=== PATIENT | female | born 1960 | race Caucasian/White ===

== ENCOUNTER 2018-01-20 07:04 | Inpatient (IN) | payer OTHER ==
[2018-01-20] MEDS ORDERED: GELATIN SIZE 100 SPONGE (08:14)
[2018-01-20] MEDS ORDERED: THROMBIN 5000 UNIT VIAL (08:15)
[2018-01-20] MEDS ORDERED: METOCLOPRAMIDE 10 MG INJ (09:14)
[2018-01-20] MEDS ORDERED: ROCURONIUM 50 MG INJ ×2 (09:14→11:22)
[2018-01-20] MEDS ORDERED: FENTAnyl 50 MCG/ML VIAL ×2 (09:14→09:44)
[2018-01-20] MEDS ORDERED: PROPOFOL 20 ML ×3 (09:14→12:12)
[2018-01-20] MEDS ORDERED: MIDAZOLAM 1 MG/ML 2 ML INJ (09:14)
[2018-01-20] MEDS ORDERED: AL HYDROX/MG HYDROX/SIMETH 30 ML CUP PO (09:30)
[2018-01-20] MEDS ORDERED: NALOXONE (0.4 MG/ML) INJ IV (09:30)
[2018-01-20] MEDS ORDERED: NACL 0.9% 3 ML SYG IV (09:30)
[2018-01-20] MEDS ORDERED: ACETAMINOPHEN 325 MG TAB PO (09:30)
[2018-01-20] MEDS ORDERED: HYDROmorphONE 2 MG/ML SYG (09:37)
[2018-01-20] MEDS ORDERED: CEFAZOLIN 1 GM INJ (10:06)
[2018-01-20] MEDS ORDERED: DEXAMETHASONE 4 MG/ML 1 ML INJ (10:06)
[2018-01-20] MEDS ORDERED: EPHEDrine SULFATE 50 MG/5 ML SYG (10:19)
[2018-01-20] MEDS ORDERED: SUCCINYLCHOLINE CHLORIDE 100 MG/5 ML SYG IV (10:19)
[2018-01-20] MEDS ORDERED: METOPROLOL 5 MG INJ (10:24)
[2018-01-20] MEDS ORDERED: DIPHENHYDRAMINE 50 MG INJ IV ×2 (10:30)
[2018-01-20] MEDS ORDERED: HYDROmorphONE (0.2 MG/ML) 10ML SYG IV ×2 (10:30)
[2018-01-20] MEDS ORDERED: hydrALAzine 20 MG INJ IV ×2 (10:30)
[2018-01-20] MEDS ORDERED: MEPERIDINE 25 MG INJ IV ×2 (10:30)
[2018-01-20] MEDS ORDERED: LABETALOL HCL 20MG INJ IV ×2 (10:30)
[2018-01-20] MEDS ORDERED: HYDROmorphONE 0.5 MG/0.5 ML SYG IV ×3 (10:30)
[2018-01-20] MEDS ORDERED: ONDANSETRON 4 MG INJ IV ×2 (10:30)
[2018-01-20] MEDS: POLYMYXIN/BACITRACIN 1L IRRIG (10:39)
[2018-01-20] MEDS ORDERED: hydrALAzine 20 MG INJ (10:50)
[2018-01-20] MEDS ORDERED: MEPERIDINE 100 MG INJ (11:43)
[2018-01-20] MEDS: ROPIVACAINE 0.5 % 30 ML VIAL ×2 (12:04→12:05)
[2018-01-20] MEDS ORDERED: NEOSTIGMINE 3 MG/3 ML SYRINGE (12:16)
[2018-01-20] MEDS ORDERED: GLYCOPYRROLATE 0.4 MG INJ (12:17)
[2018-01-20] MEDS ORDERED: LABETALOL HCL 20MG INJ (12:35)
[2018-01-20] MEDS: HYDROmorphONE (0.2 MG/ML) 10ML SYG IV (13:22)
[2018-01-20] MEDS: CEFAZOLIN 1 GM/50 ML (PMX) 50 ML IVPB ×3 (13:26→23:55)
[2018-01-20] MEDS: HYDROmorphONE 0.2 MG/ML PCA IV (13:51)
[2018-01-20] MEDS: HYDROCODONE/APAP (5/325) TAB PO (18:10)
[2018-01-20] MEDS: NS + KCL 20 MEQ 1,000 ML IV ×2 (20:11→22:27)
[2018-01-20] MEDS: HYDROmorphONE 0.5 MG/0.5 ML SYG IV (20:18)
[2018-01-20] MEDS: DOCUSATE SODIUM 100 MG CAP PO ×2 (21:42→21:46)
[2018-01-20] MEDS: KETOROLAC 30 MG INJ IM (22:37)
[2018-01-21] MEDS: HYDROmorphONE 0.5 MG/0.5 ML SYG IV ×3 (00:03→06:00)
[2018-01-21] MEDS: METHOCARBAMOL 750 MG TAB PO ×3 (02:22→22:09)
[2018-01-21] MEDS: HYDROmorphONE 0.2 MG/ML PCA IV ×2 (03:24→14:39)
[2018-01-21 04:53] LABS: ADD MAN DIFF? NO
[2018-01-21 04:55] LABS: BASOPHILS % 0.1 % (0.0-2.0); HEMATOCRIT 27.6 % (37.0-47.0); HEMOGLOBIN 9.3 g/dl (12.0-16.0); LYMPHOCYTES # 2.3 10^3/ul (0.8-2.9); LYMPHOCYTES % 20.9 % (15.0-51.0); MEAN CORPUSCULAR HEMOGLOBIN 31.1 pg (29.0-33.0); MEAN CORPUSCULAR HGB CONC 33.7 g/dl (32.0-37.0); MEAN CORPUSCULAR VOLUME 92.3 fl (82.0-101.0); MEAN PLATELET VOLUME 9.3 fl (7.4-10.4); MONOCYTE # 0.8 10^3/ul (0.3-0.9); NEUTROPHILS % 71.7 % (39.0-77.0); PLATELET COUNT 284 10^3/UL (140-415); RED BLOOD COUNT 2.99 10^6/ul (4.20-5.40); RED CELL DISTRIBUTION WIDTH 14.8 % (11.5-14.5)
[2018-01-21 04:55] LABS: WHITE BLOOD COUNT 11.2 10^3/ul (4.8-10.8)
[2018-01-21 05:09] LABS: ANION GAP 8 (8-16); BLOOD UREA NITROGEN 11 mg/dl (7-20); CALCIUM 8.2 mg/dl (8.4-10.2); CARBON DIOXIDE 30 mmol/L (21-31); CHLORIDE 110 mmol/L (97-110); CREATININE 0.54 mg/dl (0.44-1.00); GLUCOSE 104 mg/dl (70-220); POTASSIUM 3.6 mmol/L (3.5-5.1); SODIUM 144 mmol/L (135-144)
[2018-01-21] MEDS: NS + KCL 20 MEQ 1,000 ML IV ×2 (05:22→16:48)
[2018-01-21] MEDS: CEFAZOLIN 1 GM/50 ML (PMX) 50 ML IVPB (05:23)
[2018-01-21] MEDS: BUPROPION 75 MG TAB PO (08:14)
[2018-01-21] MEDS: DOCUSATE SODIUM 100 MG CAP PO ×2 (08:14→20:50)
[2018-01-21] MEDS: NICOTINE (7 MG/24 HR) PATCH TRANSDERM (08:14)
[2018-01-21] MEDS: KETOROLAC 30 MG INJ IM (08:16)
[2018-01-21] MEDS: DIPHENHYDRAMINE 50 MG INJ IV ×2 (08:34→15:18)
[2018-01-21] MEDS: KETOROLAC 30 MG INJ IV ×3 (08:37→20:50)
[2018-01-21] MEDS: HYDROCODONE/APAP (5/325) TAB PO ×3 (11:45→22:09)
[2018-01-22] MEDS: NS + KCL 20 MEQ 1,000 ML IV ×2 (03:08→13:05)
[2018-01-22] MEDS: KETOROLAC 30 MG INJ IV ×2 (03:09→15:55)
[2018-01-22] MEDS: HYDROmorphONE 0.2 MG/ML PCA IV (03:11)
[2018-01-22 06:05] LABS: ALANINE AMINOTRANSFERASE 36 IU/L (13-69); ALBUMIN/GLOBULIN RATIO 1.11; ALKALINE PHOSPHATASE 49 IU/L (42-121); ANION GAP 8 (8-16); ASPARTATE AMINO TRANSFERASE 49 IU/L (15-46); BILIRUBIN,INDIRECT 0.1 mg/dl (0-1.1); BILIRUBIN,TOTAL 0.1 mg/dl (0.2-1.3); BLOOD UREA NITROGEN 4 mg/dl (7-20); CALCIUM 8.2 mg/dl (8.4-10.2); CARBON DIOXIDE 32 mmol/L (21-31); CHLORIDE 107 mmol/L (97-110); CREATININE 0.46 mg/dl (0.44-1.00); GLUCOSE 85 mg/dl (70-220); POTASSIUM 3.5 mmol/L (3.5-5.1); SODIUM 143 mmol/L (135-144); TOTAL PROTEIN 5.7 g/dl (6.1-8.1)
[2018-01-22] MEDS: HYDROCODONE/APAP (5/325) TAB PO ×3 (06:56→20:21)
[2018-01-22] MEDS: DOCUSATE SODIUM 100 MG CAP PO ×2 (08:31→20:21)
[2018-01-22] MEDS: BUPROPION 75 MG TAB PO (08:32)
[2018-01-22] MEDS: NICOTINE (7 MG/24 HR) PATCH TRANSDERM (09:32)
[2018-01-22] MEDS: METHOCARBAMOL 750 MG TAB PO (10:22)
[2018-01-22] MEDS: HYDROmorphONE 0.5 MG/0.5 ML SYG IV ×3 (13:05→21:17)
[2018-01-23] MEDS: NS + KCL 20 MEQ 1,000 ML IV ×3 (00:09→21:06)
[2018-01-23] MEDS: KETOROLAC 30 MG INJ IV ×3 (02:00→19:49)
[2018-01-23] MEDS: HYDROmorphONE 0.5 MG/0.5 ML SYG IV ×4 (06:05→23:07)
[2018-01-23] MEDS: HYDROCODONE/APAP (5/325) TAB PO ×3 (08:54→18:49)
[2018-01-23] MEDS: BUPROPION 75 MG TAB PO (08:55)
[2018-01-23] MEDS: DOCUSATE SODIUM 100 MG CAP PO ×2 (08:55→21:01)
[2018-01-23] MEDS: NICOTINE (7 MG/24 HR) PATCH TRANSDERM (08:55)
[2018-01-24] MEDS: HYDROCODONE/APAP (5/325) TAB PO ×4 (04:51→19:58)
[2018-01-24] MEDS: KETOROLAC 30 MG INJ IV (05:33)
[2018-01-24 05:47] LABS: ADD MAN DIFF? NO
[2018-01-24 05:57] LABS: BASOPHILS % 0.6 % (0.0-2.0); EOSINOPHILS # 0.2 10^3/ul (0.0-0.5); EOSINOPHILS % 2.8 % (0.0-7.0); HEMATOCRIT 27.6 % (37.0-47.0); HEMOGLOBIN 9.1 g/dl (12.0-16.0); LYMPHOCYTES # 1.8 10^3/ul (0.8-2.9); LYMPHOCYTES % 27.1 % (15.0-51.0); MEAN CORPUSCULAR HEMOGLOBIN 30.5 pg (29.0-33.0); MEAN CORPUSCULAR VOLUME 92.6 fl (82.0-101.0); MEAN PLATELET VOLUME 9.1 fl (7.4-10.4); MONOCYTE # 0.5 10^3/ul (0.3-0.9); MONOCYTES % 7.1 % (0.0-11.0); NEUTROPHILS % 62.2 % (39.0-77.0); PLATELET COUNT 305 10^3/UL (140-415); RED BLOOD COUNT 2.98 10^6/ul (4.20-5.40); RED CELL DISTRIBUTION WIDTH 14.7 % (11.5-14.5)
[2018-01-24 05:57] LABS: WHITE BLOOD COUNT 6.5 10^3/ul (4.8-10.8)
[2018-01-24 06:20] LABS: ANION GAP 11 (8-16); BLOOD UREA NITROGEN 6 mg/dl (7-20); CALCIUM 8.4 mg/dl (8.4-10.2); CARBON DIOXIDE 28 mmol/L (21-31); CHLORIDE 107 mmol/L (97-110); CREATININE 0.47 mg/dl (0.44-1.00); GLUCOSE 102 mg/dl (70-220); SODIUM 142 mmol/L (135-144)
[2018-01-24] MEDS: NS + KCL 20 MEQ 1,000 ML IV (06:39)
[2018-01-24] MEDS: BUPROPION 75 MG TAB PO (08:15)
[2018-01-24] MEDS: DOCUSATE SODIUM 100 MG CAP PO ×2 (08:15→19:57)
[2018-01-24] MEDS: NICOTINE (7 MG/24 HR) PATCH TRANSDERM (08:15)
[2018-01-24] MEDS: HYDROmorphONE 0.5 MG/0.5 ML SYG IV ×4 (09:02→20:54)
[2018-01-25] MEDS: HYDROmorphONE 0.5 MG/0.5 ML SYG IV ×6 (00:07→22:16)
[2018-01-25] MEDS: HYDROCODONE/APAP (5/325) TAB PO ×5 (00:29→21:07)
[2018-01-25 05:16] LABS: ADD MAN DIFF? NO
[2018-01-25 05:25] LABS: WHITE BLOOD COUNT 6.1 10^3/ul (4.8-10.8)
[2018-01-25 05:25] LABS: BASOPHILS % 0.7 % (0.0-2.0); EOSINOPHILS # 0.2 10^3/ul (0.0-0.5); EOSINOPHILS % 2.9 % (0.0-7.0); HEMATOCRIT 29.3 % (37.0-47.0); HEMOGLOBIN 9.8 g/dl (12.0-16.0); LYMPHOCYTES # 2.1 10^3/ul (0.8-2.9); LYMPHOCYTES % 33.7 % (15.0-51.0); MEAN CORPUSCULAR HEMOGLOBIN 30.6 pg (29.0-33.0); MEAN CORPUSCULAR HGB CONC 33.4 g/dl (32.0-37.0); MEAN CORPUSCULAR VOLUME 91.6 fl (82.0-101.0); MEAN PLATELET VOLUME 8.8 fl (7.4-10.4); MONOCYTE # 0.5 10^3/ul (0.3-0.9); MONOCYTES % 8.3 % (0.0-11.0); NEUTROPHIL # 3.3 10^3/ul (1.6-7.5); NEUTROPHILS % 54.2 % (39.0-77.0); PLATELET COUNT 335 10^3/UL (140-415); RED CELL DISTRIBUTION WIDTH 14.4 % (11.5-14.5)
[2018-01-25 05:52] LABS: ANION GAP 6 (8-16); BLOOD UREA NITROGEN 6 mg/dl (7-20); CARBON DIOXIDE 35 mmol/L (21-31); CHLORIDE 108 mmol/L (97-110); CREATININE 0.53 mg/dl (0.44-1.00); GLUCOSE 105 mg/dl (70-220); POTASSIUM 3.9 mmol/L (3.5-5.1); SODIUM 145 mmol/L (135-144)
[2018-01-25] MEDS: METHOCARBAMOL 750 MG TAB PO (06:10)
[2018-01-25] MEDS: DOCUSATE SODIUM 100 MG CAP PO ×2 (08:31→20:24)
[2018-01-25] MEDS: BUPROPION 75 MG TAB PO (08:32)
[2018-01-25] MEDS: NICOTINE (7 MG/24 HR) PATCH TRANSDERM (08:33)
[2018-01-26] MEDS: HYDROmorphONE 0.5 MG/0.5 ML SYG IV ×6 (03:38→22:07)
[2018-01-26 05:37] LABS: ADD MAN DIFF? NO
[2018-01-26 05:41] LABS: WHITE BLOOD COUNT 5.9 10^3/ul (4.8-10.8)
[2018-01-26 05:41] LABS: BASOPHIL # 0.1 10^3/ul (0.0-0.1); EOSINOPHILS # 0.2 10^3/ul (0.0-0.5); EOSINOPHILS % 3.1 % (0.0-7.0); HEMATOCRIT 29.1 % (37.0-47.0); HEMOGLOBIN 9.7 g/dl (12.0-16.0); LYMPHOCYTES # 1.5 10^3/ul (0.8-2.9); LYMPHOCYTES % 25.2 % (15.0-51.0); MEAN CORPUSCULAR HEMOGLOBIN 30.8 pg (29.0-33.0); MEAN CORPUSCULAR HGB CONC 33.3 g/dl (32.0-37.0); MEAN CORPUSCULAR VOLUME 92.4 fl (82.0-101.0); MEAN PLATELET VOLUME 8.7 fl (7.4-10.4); MONOCYTE # 0.5 10^3/ul (0.3-0.9); MONOCYTES % 8.7 % (0.0-11.0); NEUTROPHIL # 3.6 10^3/ul (1.6-7.5); NEUTROPHILS % 61.7 % (39.0-77.0); PLATELET COUNT 361 10^3/UL (140-415); RED BLOOD COUNT 3.15 10^6/ul (4.20-5.40); RED CELL DISTRIBUTION WIDTH 14.7 % (11.5-14.5)
[2018-01-26 05:59] LABS: ANION GAP 12 (8-16); BLOOD UREA NITROGEN 9 mg/dl (7-20); CALCIUM 8.9 mg/dl (8.4-10.2); CARBON DIOXIDE 30 mmol/L (21-31); CHLORIDE 104 mmol/L (97-110); CREATININE 0.51 mg/dl (0.44-1.00); GLUCOSE 120 mg/dl (70-220); POTASSIUM 4.2 mmol/L (3.5-5.1); SODIUM 142 mmol/L (135-144)
[2018-01-26] MEDS: HYDROCODONE/APAP (5/325) TAB PO ×4 (07:51→21:34)
[2018-01-26] MEDS: DOCUSATE SODIUM 100 MG CAP PO ×2 (08:49→21:26)
[2018-01-26] MEDS: METHOCARBAMOL 750 MG TAB PO ×2 (08:50→17:58)
[2018-01-26] MEDS: BUPROPION 75 MG TAB PO (08:50)
[2018-01-26] MEDS: NICOTINE (7 MG/24 HR) PATCH TRANSDERM (08:51)
[2018-01-27] MEDS: HYDROCODONE/APAP (5/325) TAB PO ×4 (01:50→17:46)
[2018-01-27] MEDS: HYDROmorphONE 0.5 MG/0.5 ML SYG IV ×7 (02:13→18:22)
[2018-01-27] MEDS: DOCUSATE SODIUM 100 MG CAP PO (08:36)
[2018-01-27] MEDS: BUPROPION 75 MG TAB PO (08:36)
[2018-01-27] MEDS: NICOTINE (7 MG/24 HR) PATCH TRANSDERM (08:36)
[2018-01-27] MEDS: METHOCARBAMOL 750 MG TAB PO (11:15)
== END 2018-01-27 19:45 | disposition home or self-care (01) | DRG 472 ==
LOC: REC 07:04 → MS1 01-22 01:45 → ICU 20:04 → MS1 01-22 03:15
PROC: 0RG20AJ Fusion of 2 or more Cervical Vertebral Joints with Interbody Fusion Device, Posterior Approach, Anterior Column, Open Approach (ICD-10-PCS; principal; 2018-01-20 09:00)
DX: M48.02 Spinal stenosis, cervical region (principal); Z68.1 Body mass index [BMI] 19.9 or less, adult; E44.0 Moderate protein-calorie malnutrition; G95.89 Other specified diseases of spinal cord; M54.12 Radiculopathy, cervical region; F41.8 Other specified anxiety disorders; Z72.0 Tobacco use; Z98.1 Arthrodesis status
CPT/HCPCS: 71045; 72020; 72125; 80048; 80053; 85025; 86850; 86900; 86901; 87086; 97110; 97116; 97163; 97530

== ENCOUNTER 2018-02-12 16:28 | Emergency (ER) | payer OTHER ==
[2018-02-12] MEDS: ONDANSETRON 4 MG INJ IV (17:37)
[2018-02-12] MEDS: HYDROmorphONE 1 MG/5 ML IV SYRINGE IV (17:39)
[2018-02-12] MEDS: SOD CHLORIDE 0.9% 1,000 ML IV (17:39)
[2018-02-12 18:32] LABS: ADD MAN DIFF? NO
[2018-02-12 18:34] LABS: BASOPHIL # 0.1 10^3/ul (0.0-0.1); BASOPHILS % 1.1 % (0.0-2.0); EOSINOPHILS # 0.2 10^3/ul (0.0-0.5); EOSINOPHILS % 3.3 % (0.0-7.0); HEMATOCRIT 31.7 % (37.0-47.0); HEMOGLOBIN 10.2 g/dl (12.0-16.0); LYMPHOCYTES # 2.6 10^3/ul (0.8-2.9); LYMPHOCYTES % 38.6 % (15.0-51.0); MEAN CORPUSCULAR HEMOGLOBIN 30.1 pg (29.0-33.0); MEAN CORPUSCULAR HGB CONC 32.2 g/dl (32.0-37.0); MEAN CORPUSCULAR VOLUME 93.5 fl (82.0-101.0); MEAN PLATELET VOLUME 8.4 fl (7.4-10.4); MONOCYTE # 0.5 10^3/ul (0.3-0.9); MONOCYTES % 7.4 % (0.0-11.0); NEUTROPHIL # 3.3 10^3/ul (1.6-7.5); NEUTROPHILS % 49.4 % (39.0-77.0); PLATELET COUNT 564 10^3/UL (140-415); RED BLOOD COUNT 3.39 10^6/ul (4.20-5.40)
[2018-02-12 18:34] LABS: WHITE BLOOD COUNT 6.7 10^3/ul (4.8-10.8)
[2018-02-12 18:53] LABS: ALANINE AMINOTRANSFERASE 20 IU/L (13-69); ALBUMIN 4.4 g/dl (3.3-4.9); ALBUMIN/GLOBULIN RATIO 1.29; ALKALINE PHOSPHATASE 62 IU/L (42-121); ANION GAP 15 (8-16); ASPARTATE AMINO TRANSFERASE 24 IU/L (15-46); BILIRUBIN,INDIRECT 0.1 mg/dl (0-1.1); BILIRUBIN,TOTAL 0.1 mg/dl (0.2-1.3); BLOOD UREA NITROGEN 8 mg/dl (7-20); CARBON DIOXIDE 27 mmol/L (21-31); CHLORIDE 105 mmol/L (97-110); CREATININE 0.58 mg/dl (0.44-1.00); GLUCOSE 102 mg/dl (70-220); LIPASE 80 U/L (23-300); POTASSIUM 3.8 mmol/L (3.5-5.1); SODIUM 143 mmol/L (135-144); TOTAL PROTEIN 7.8 g/dl (6.1-8.1)
[2018-02-12 19:23] LABS: ADD UMIC YES; UR ASCORBIC ACID NEGATIVE (NEGATIVE); UR BILIRUBIN (Dip) NEGATIVE (NEGATIVE); UR BLOOD (Dip) 1+ mg/dL (NEGATIVE); UR CLARITY SLIGHTLY CLOUDY (CLEAR); UR COLOR YELLOW (YELLOW); UR GLUCOSE (Dip) NEGATIVE (NEGATIVE); UR KETONES (Dip) NEGATIVE (NEGATIVE); UR LEUKOCYTE ESTERASE (Dip) TRACE Leu/ul (NEGATIVE); UR NITRITE (Dip) NEGATIVE (NEGATIVE); UR RBC 1 /HPF (0-5); UR SPECIFIC GRAVITY (Dip) 1.004 (1.003-1.030); UR TOTAL PROTEIN (Dip) NEGATIVE (NEGATIVE); UR UROBILINOGEN (Dip) NEGATIVE (NEGATIVE); UR WBC 3 /HPF (0-5)
== END 2018-02-12 19:44 | disposition home or self-care (01) ==
LOC: FTE 16:28
DX: G89.18 Other acute postprocedural pain (principal); M54.2 Cervicalgia
CPT/HCPCS: 36415; 72125; 80053; 81001; 83690; 85025; 96374; 96375; 99285-25

== ENCOUNTER 2018-02-25 00:51 | Inpatient (IN) | payer OTHER ==
[2018-02-25] MEDS: ONDANSETRON 4 MG INJ IV (02:46)
[2018-02-25] MEDS: morphine 4 MG/ML VIAL IV (02:47)
[2018-02-25] MEDS: SODIUM CHLORIDE 0.9% 1L BAG IV* (02:47)
[2018-02-25 02:52] LABS: ADD MAN DIFF? NO
[2018-02-25 02:55] LABS: BASOPHIL # 0.1 10^3/ul (0.0-0.1); EOSINOPHILS # 0.1 10^3/ul (0.0-0.5); EOSINOPHILS % 1.6 % (0.0-7.0); HEMATOCRIT 32.6 % (37.0-47.0); HEMOGLOBIN 10.4 g/dl (12.0-16.0); LYMPHOCYTES # 2.8 10^3/ul (0.8-2.9); LYMPHOCYTES % 39.4 % (15.0-51.0); MEAN CORPUSCULAR HEMOGLOBIN 29.5 pg (29.0-33.0); MEAN CORPUSCULAR HGB CONC 31.9 g/dl (32.0-37.0); MEAN CORPUSCULAR VOLUME 92.4 fl (82.0-101.0); MONOCYTE # 0.5 10^3/ul (0.3-0.9); MONOCYTES % 6.6 % (0.0-11.0); NEUTROPHIL # 3.6 10^3/ul (1.6-7.5); NEUTROPHILS % 51.3 % (39.0-77.0); PLATELET COUNT 317 10^3/UL (140-415); RED BLOOD COUNT 3.53 10^6/ul (4.20-5.40); RED CELL DISTRIBUTION WIDTH 14.1 % (11.5-14.5)
[2018-02-25 03:15] LABS: LACTIC ACID 0.8 mmol/L (0.5-2.0)
[2018-02-25 03:16] LABS: ALANINE AMINOTRANSFERASE 16 IU/L (13-69); ALBUMIN 4.6 g/dl (3.3-4.9); ALBUMIN/GLOBULIN RATIO 1.31; ALKALINE PHOSPHATASE 70 IU/L (42-121); ANION GAP 14 (8-16); ASPARTATE AMINO TRANSFERASE 26 IU/L (15-46); BILIRUBIN,INDIRECT 0.2 mg/dl (0-1.1); BILIRUBIN,TOTAL 0.2 mg/dl (0.2-1.3); BLOOD UREA NITROGEN 12 mg/dl (7-20); CALCIUM 9.2 mg/dl (8.4-10.2); CARBON DIOXIDE 27 mmol/L (21-31); CHLORIDE 105 mmol/L (97-110); CREATININE 0.66 mg/dl (0.44-1.00); GLUCOSE 106 mg/dl (70-220); POTASSIUM 4.3 mmol/L (3.5-5.1); SODIUM 142 mmol/L (135-144); TOTAL PROTEIN 8.1 g/dl (6.1-8.1)
[2018-02-25 03:28] LABS: ADD UMIC YES; UR ASCORBIC ACID NEGATIVE (NEGATIVE); UR BILIRUBIN (Dip) NEGATIVE (NEGATIVE); UR BLOOD (Dip) 1+ mg/dL (NEGATIVE); UR CLARITY CLEAR (CLEAR); UR COLOR YELLOW (YELLOW); UR GLUCOSE (Dip) NEGATIVE (NEGATIVE); UR KETONES (Dip) NEGATIVE (NEGATIVE); UR LEUKOCYTE ESTERASE (Dip) NEGATIVE Leu/ul (NEGATIVE); UR NITRITE (Dip) NEGATIVE (NEGATIVE); UR RBC 2 /HPF (0-5); UR SPECIFIC GRAVITY (Dip) 1.005 (1.003-1.030); UR TOTAL PROTEIN (Dip) NEGATIVE (NEGATIVE); UR UROBILINOGEN (Dip) NEGATIVE (NEGATIVE); UR WBC 1 /HPF (0-5)
[2018-02-25] MEDS: VANCOMYCIN 1 GM (PMX) 250 ML IVPB (04:06)
[2018-02-25] MEDS: CEFEPIME 2GM/50 ML (PMX) 50 ML IVPB (04:13)
[2018-02-25] MEDS: KETOROLAC 30 MG INJ IV (06:04)
[2018-02-25 06:23] LABS: LACTIC ACID 0.7 mmol/L (0.5-2.0)
[2018-02-25 08:00] LABS: LACTIC ACID 0.7 mmol/L (0.5-2.0)
[2018-02-25] MEDS ORDERED: PENDING SANTYL ORDER FOR WOUND CARE XX (08:30)
[2018-02-25] MEDS: morphine 2 MG INJ IV ×2 (09:46→13:49)
[2018-02-25] MEDS: OXYCODONE/ACETAMINOPHEN (10/325) TAB PO ×2 (09:47→20:16)
[2018-02-25] MEDS: LORATADINE 10 MG TAB PO (09:47)
[2018-02-25] MEDS: CHOLECALCIFEROL 2,000 UNIT CAP PO (09:47)
[2018-02-25] MEDS: BUPROPION 75 MG TAB PO (09:47)
[2018-02-25] MEDS ORDERED: VANCOMYCIN IV PER PHARMACY XX (12:30)
[2018-02-25] MEDS: METHOCARBAMOL 750 MG TAB PO (12:53)
[2018-02-25] MEDS: CEFEPIME 1GM/50 ML (PMX) 50 ML IVPB ×2 (13:45→20:16)
[2018-02-25] MEDS: NICOTINE (21 MG/24 HR) PATCH TRANSDERM (13:47)
[2018-02-25] MEDS: VANCOMYCIN 500MG/NS (PMX) 100 ML IVPB (16:28)
[2018-02-25] MEDS: morphine LIQ (10 MG/5 ML) CUP PO ×2 (17:49→23:09)
[2018-02-25] MEDS: traZODone 100 MG TAB PO (20:15)
[2018-02-26] MEDS: VANCOMYCIN 500MG/NS (PMX) 100 ML IVPB ×2 (03:47→15:28)
[2018-02-26] MEDS: METHOCARBAMOL 750 MG TAB PO ×3 (04:55→21:09)
[2018-02-26] MEDS: morphine LIQ (10 MG/5 ML) CUP PO (04:55)
[2018-02-26 06:13] LABS: ADD MAN DIFF? NO
[2018-02-26 06:23] LABS: WHITE BLOOD COUNT 4.6 10^3/ul (4.8-10.8)
[2018-02-26 06:23] LABS: BASOPHILS % 0.9 % (0.0-2.0); EOSINOPHILS # 0.1 10^3/ul (0.0-0.5); EOSINOPHILS % 2.6 % (0.0-7.0); HEMATOCRIT 30.7 % (37.0-47.0); HEMOGLOBIN 9.9 g/dl (12.0-16.0); LYMPHOCYTES # 2.1 10^3/ul (0.8-2.9); LYMPHOCYTES % 45.3 % (15.0-51.0); MEAN CORPUSCULAR HGB CONC 32.2 g/dl (32.0-37.0); MEAN PLATELET VOLUME 9.1 fl (7.4-10.4); MONOCYTE # 0.3 10^3/ul (0.3-0.9); MONOCYTES % 7.4 % (0.0-11.0); NEUTROPHILS % 43.6 % (39.0-77.0); PLATELET COUNT 271 10^3/UL (140-415); RED CELL DISTRIBUTION WIDTH 13.5 % (11.5-14.5)
[2018-02-26 07:58] LABS: ANION GAP 8 (8-16); BLOOD UREA NITROGEN 7 mg/dl (7-20); CALCIUM 8.5 mg/dl (8.4-10.2); CARBON DIOXIDE 26 mmol/L (21-31); CHLORIDE 111 mmol/L (97-110); CREATININE 0.61 mg/dl (0.44-1.00); GLUCOSE 80 mg/dl (70-220); POTASSIUM 4.1 mmol/L (3.5-5.1); SODIUM 141 mmol/L (135-144)
[2018-02-26] MEDS: HYDROmorphONE 1 MG/ML SYG IV ×4 (08:08→21:04)
[2018-02-26] MEDS ORDERED: NICOTINE (21 MG/24 HR) PATCH TRANSDERM (09:00)
[2018-02-26] MEDS: CHOLECALCIFEROL 2,000 UNIT CAP PO (09:27)
[2018-02-26] MEDS: OXYCODONE/ACETAMINOPHEN (10/325) TAB PO ×2 (09:28→21:54)
[2018-02-26] MEDS: LORATADINE 10 MG TAB PO (09:28)
[2018-02-26] MEDS: BUPROPION 75 MG TAB PO (09:28)
[2018-02-26] MEDS: CEFEPIME 1GM/50 ML (PMX) 50 ML IVPB ×2 (09:28→21:04)
[2018-02-26] MEDS: NICOTINE (21 MG/24 HR) PATCH TRANSDERM (09:31)
[2018-02-26 15:22] LABS: VANCOMYCIN,TROUGH 6.5 ug/ml (10.0-20.0)
[2018-02-26] MEDS: traZODone 100 MG TAB PO (21:54)
[2018-02-27] MEDS: HYDROmorphONE 1 MG/ML SYG IV ×6 (01:44→22:14)
[2018-02-27] MEDS: VANCOMYCIN 1 GM 250 ML IVPB ×2 (04:42→16:33)
[2018-02-27 05:35] LABS: ADD MAN DIFF? NO
[2018-02-27 05:44] LABS: BASOPHIL # 0.1 10^3/ul (0.0-0.1); BASOPHILS % 1.1 % (0.0-2.0); EOSINOPHILS # 0.1 10^3/ul (0.0-0.5); EOSINOPHILS % 2.6 % (0.0-7.0); HEMATOCRIT 34.5 % (37.0-47.0); HEMOGLOBIN 10.7 g/dl (12.0-16.0); LYMPHOCYTES # 2.5 10^3/ul (0.8-2.9); LYMPHOCYTES % 46.1 % (15.0-51.0); MEAN CORPUSCULAR HEMOGLOBIN 28.6 pg (29.0-33.0); MEAN CORPUSCULAR VOLUME 92.2 fl (82.0-101.0); MEAN PLATELET VOLUME 8.6 fl (7.4-10.4); MONOCYTE # 0.4 10^3/ul (0.3-0.9); NEUTROPHIL # 2.3 10^3/ul (1.6-7.5); PLATELET COUNT 323 10^3/UL (140-415); RED BLOOD COUNT 3.74 10^6/ul (4.20-5.40); RED CELL DISTRIBUTION WIDTH 13.4 % (11.5-14.5)
[2018-02-27 05:44] LABS: WHITE BLOOD COUNT 5.4 10^3/ul (4.8-10.8)
[2018-02-27 06:17] LABS: ANION GAP 4 (8-16); BLOOD UREA NITROGEN 6 mg/dl (7-20); CALCIUM 9.1 mg/dl (8.4-10.2); CARBON DIOXIDE 32 mmol/L (21-31); CHLORIDE 108 mmol/L (97-110); CREATININE 0.68 mg/dl (0.44-1.00); GLUCOSE 95 mg/dl (70-220); POTASSIUM 4.3 mmol/L (3.5-5.1); SODIUM 140 mmol/L (135-144)
[2018-02-27] MEDS: CEFEPIME 1GM/50 ML (PMX) 50 ML IVPB ×2 (08:41→20:51)
[2018-02-27] MEDS: NICOTINE (21 MG/24 HR) PATCH TRANSDERM (08:42)
[2018-02-27] MEDS: BUPROPION 75 MG TAB PO (08:42)
[2018-02-27] MEDS: OXYCODONE/ACETAMINOPHEN (10/325) TAB PO ×2 (08:42→20:50)
[2018-02-27] MEDS: CHOLECALCIFEROL 2,000 UNIT CAP PO (08:42)
[2018-02-27] MEDS: LORATADINE 10 MG TAB PO (08:42)
[2018-02-27] MEDS: METHOCARBAMOL 750 MG TAB PO (18:55)
[2018-02-27] MEDS: traZODone 100 MG TAB PO (20:51)
[2018-02-28] MEDS: HYDROmorphONE 1 MG/ML SYG IV ×6 (04:03→21:24)
[2018-02-28] MEDS: VANCOMYCIN 1 GM 250 ML IVPB ×2 (04:03→16:58)
[2018-02-28] MEDS: METHOCARBAMOL 750 MG TAB PO ×2 (04:37→13:11)
[2018-02-28 05:36] LABS: ADD MAN DIFF? NO
[2018-02-28 05:40] LABS: WHITE BLOOD COUNT 4.1 10^3/ul (4.8-10.8)
[2018-02-28 05:40] LABS: EOSINOPHILS # 0.2 10^3/ul (0.0-0.5); EOSINOPHILS % 3.9 % (0.0-7.0); HEMATOCRIT 30.6 % (37.0-47.0); LYMPHOCYTES # 1.6 10^3/ul (0.8-2.9); LYMPHOCYTES % 38.7 % (15.0-51.0); MEAN CORPUSCULAR HEMOGLOBIN 29.8 pg (29.0-33.0); MEAN CORPUSCULAR HGB CONC 32.7 g/dl (32.0-37.0); MEAN CORPUSCULAR VOLUME 91.1 fl (82.0-101.0); MEAN PLATELET VOLUME 8.6 fl (7.4-10.4); MONOCYTE # 0.3 10^3/ul (0.3-0.9); MONOCYTES % 7.4 % (0.0-11.0); NEUTROPHILS % 48.8 % (39.0-77.0); PLATELET COUNT 293 10^3/UL (140-415); RED BLOOD COUNT 3.36 10^6/ul (4.20-5.40); RED CELL DISTRIBUTION WIDTH 13.3 % (11.5-14.5)
[2018-02-28 06:05] LABS: ANION GAP 8 (8-16); BLOOD UREA NITROGEN 9 mg/dl (7-20); CALCIUM 8.6 mg/dl (8.4-10.2); CARBON DIOXIDE 29 mmol/L (21-31); CHLORIDE 108 mmol/L (97-110); CREATININE 0.62 mg/dl (0.44-1.00); GLUCOSE 85 mg/dl (70-220); POTASSIUM 3.7 mmol/L (3.5-5.1); SODIUM 141 mmol/L (135-144)
[2018-02-28 06:09] LABS: PREALBUMIN 14.1 mg/dl (17.6-36.0)
[2018-02-28 07:42] LABS: ERYTHROCYTE SEDIMENTATION RATE 12 mm/Hr (0-30)
[2018-02-28] MEDS: NICOTINE (21 MG/24 HR) PATCH TRANSDERM (09:00)
[2018-02-28] MEDS: BUPROPION 75 MG TAB PO (09:00)
[2018-02-28] MEDS: OXYCODONE/ACETAMINOPHEN (10/325) TAB PO ×2 (09:00→20:49)
[2018-02-28] MEDS: LORATADINE 10 MG TAB PO (09:00)
[2018-02-28] MEDS: CHOLECALCIFEROL 2,000 UNIT CAP PO (09:00)
[2018-02-28] MEDS: CEFEPIME 1GM/50 ML (PMX) 50 ML IVPB ×2 (09:01→20:49)
[2018-02-28 09:13] LABS: HIV 1&2 ANTIBODY NEGATIVE (NEGATIVE)
[2018-02-28 17:19] LABS: HEPATITIS B SURFACE ANTIGEN NEGATIVE (NEGATIVE)
[2018-02-28 17:36] LABS: HEPATITIS C VIRAL ANTIBODY NEGATIVE (NEGATIVE)
[2018-02-28 18:40] LABS: AMPHETAMINE/METHAMPHETAMINE NEGATIVE (NEGATIVE); BARBITURATES NEGATIVE (NEGATIVE); BENZODIAZEPINES NEGATIVE (NEGATIVE); CANNABINOIDS NEGATIVE (NEGATIVE); COCAINE NEGATIVE (NEGATIVE); OPIATES NEGATIVE (NEGATIVE)
[2018-02-28 19:57] LABS: HEPATITIS B SURFACE ANTIBODY NEGATIVE (NEGATIVE)
[2018-02-28] MEDS: traZODone 100 MG TAB PO (20:49)
[2018-03-01] MEDS: HYDROmorphONE 1 MG/ML SYG IV ×7 (02:33→21:12)
[2018-03-01 03:30] LABS: ADD MAN DIFF? NO
[2018-03-01 03:34] LABS: BASOPHIL # 0.1 10^3/ul (0.0-0.1); BASOPHILS % 1.2 % (0.0-2.0); EOSINOPHILS # 0.2 10^3/ul (0.0-0.5); EOSINOPHILS % 2.9 % (0.0-7.0); HEMATOCRIT 30.7 % (37.0-47.0); HEMOGLOBIN 9.9 g/dl (12.0-16.0); LYMPHOCYTES # 1.9 10^3/ul (0.8-2.9); LYMPHOCYTES % 35.9 % (15.0-51.0); MEAN CORPUSCULAR HEMOGLOBIN 29.4 pg (29.0-33.0); MEAN CORPUSCULAR HGB CONC 32.2 g/dl (32.0-37.0); MEAN CORPUSCULAR VOLUME 91.1 fl (82.0-101.0); MONOCYTE # 0.4 10^3/ul (0.3-0.9); MONOCYTES % 6.7 % (0.0-11.0); NEUTROPHIL # 2.8 10^3/ul (1.6-7.5); NEUTROPHILS % 53.1 % (39.0-77.0); PLATELET COUNT 272 10^3/UL (140-415); RED BLOOD COUNT 3.37 10^6/ul (4.20-5.40); RED CELL DISTRIBUTION WIDTH 13.2 % (11.5-14.5)
[2018-03-01 03:34] LABS: WHITE BLOOD COUNT 5.2 10^3/ul (4.8-10.8)
[2018-03-01 04:09] LABS: VANCOMYCIN,TROUGH 12.6 ug/ml (10.0-20.0)
[2018-03-01 04:15] LABS: ANION GAP 7 (8-16); BLOOD UREA NITROGEN 9 mg/dl (7-20); CALCIUM 8.7 mg/dl (8.4-10.2); CARBON DIOXIDE 29 mmol/L (21-31); CHLORIDE 109 mmol/L (97-110); CREATININE 0.56 mg/dl (0.44-1.00); GLUCOSE 105 mg/dl (70-220); POTASSIUM 3.7 mmol/L (3.5-5.1); SODIUM 141 mmol/L (135-144)
[2018-03-01] MEDS: VANCOMYCIN 1 GM 250 ML IVPB (05:22)
[2018-03-01] MEDS: OXYCODONE/ACETAMINOPHEN (10/325) TAB PO ×2 (08:36→18:53)
[2018-03-01] MEDS: LORATADINE 10 MG TAB PO (08:36)
[2018-03-01] MEDS: BUPROPION 75 MG TAB PO (08:36)
[2018-03-01] MEDS: NICOTINE (21 MG/24 HR) PATCH TRANSDERM (08:36)
[2018-03-01] MEDS: CHOLECALCIFEROL 2,000 UNIT CAP PO (08:36)
[2018-03-01] MEDS: CEFEPIME 1GM/50 ML (PMX) 50 ML IVPB ×2 (08:36→20:36)
[2018-03-01] MEDS: METHOCARBAMOL 750 MG TAB PO ×2 (09:48→21:14)
[2018-03-01] MEDS: VANCOMYCIN 750 MG in SOD CHLORIDE 0.9% 150 ML IVPB ×2 (14:25→21:10)
[2018-03-01] MEDS: LIDOCAINE 1% (MPF) 5 ML VIAL SC (17:10)
[2018-03-01] MEDS: traZODone 100 MG TAB PO (20:36)
[2018-03-02] MEDS: HYDROmorphONE 1 MG/ML SYG IV ×8 (00:15→22:21)
[2018-03-02] MEDS: OXYCODONE/ACETAMINOPHEN (10/325) TAB PO ×4 (01:28→20:38)
[2018-03-02] MEDS: VANCOMYCIN 750 MG in SOD CHLORIDE 0.9% 150 ML IVPB ×2 (06:38→14:42)
[2018-03-02 07:06] LABS: ADD MAN DIFF? NO
[2018-03-02 07:11] LABS: WHITE BLOOD COUNT 8.3 10^3/ul (4.8-10.8)
[2018-03-02 07:11] LABS: BASOPHIL # 0.1 10^3/ul (0.0-0.1); BASOPHILS % 1.1 % (0.0-2.0); EOSINOPHILS # 0.3 10^3/ul (0.0-0.5); EOSINOPHILS % 3.2 % (0.0-7.0); HEMATOCRIT 35.8 % (37.0-47.0); HEMOGLOBIN 11.5 g/dl (12.0-16.0); LYMPHOCYTES # 2.6 10^3/ul (0.8-2.9); LYMPHOCYTES % 31.1 % (15.0-51.0); MEAN CORPUSCULAR HEMOGLOBIN 29.3 pg (29.0-33.0); MEAN CORPUSCULAR HGB CONC 32.1 g/dl (32.0-37.0); MEAN CORPUSCULAR VOLUME 91.3 fl (82.0-101.0); MEAN PLATELET VOLUME 8.9 fl (7.4-10.4); MONOCYTE # 0.5 10^3/ul (0.3-0.9); MONOCYTES % 6.1 % (0.0-11.0); NEUTROPHIL # 4.9 10^3/ul (1.6-7.5); NEUTROPHILS % 58.3 % (39.0-77.0); PLATELET COUNT 389 10^3/UL (140-415); RED BLOOD COUNT 3.92 10^6/ul (4.20-5.40); RED CELL DISTRIBUTION WIDTH 13.4 % (11.5-14.5)
[2018-03-02 07:30] LABS: ANION GAP 12 (8-16); BLOOD UREA NITROGEN 10 mg/dl (7-20); CALCIUM 9.3 mg/dl (8.4-10.2); CARBON DIOXIDE 29 mmol/L (21-31); CHLORIDE 105 mmol/L (97-110); CREATININE 0.56 mg/dl (0.44-1.00); GLUCOSE 111 mg/dl (70-220); SODIUM 142 mmol/L (135-144)
[2018-03-02] MEDS: BUPROPION 75 MG TAB PO (08:29)
[2018-03-02] MEDS: METHOCARBAMOL 750 MG TAB PO ×2 (08:29→20:30)
[2018-03-02] MEDS: LORATADINE 10 MG TAB PO (08:30)
[2018-03-02] MEDS: CHOLECALCIFEROL 2,000 UNIT CAP PO (08:30)
[2018-03-02] MEDS: CEFEPIME 1GM/50 ML (PMX) 50 ML IVPB (08:30)
[2018-03-02] MEDS: NICOTINE (21 MG/24 HR) PATCH TRANSDERM (08:34)
[2018-03-02] MEDS: BISACODYL (EC) 5 MG TAB PO (08:36)
[2018-03-02 14:34] LABS: VANCOMYCIN,TROUGH 11.9 ug/ml (10.0-20.0)
[2018-03-02] MEDS: CEFTRIAXONE 1 GM/50 ML (PMX) 50 ML IVPB (18:18)
[2018-03-02] MEDS: traZODone 100 MG TAB PO (20:30)
[2018-03-02] MEDS: VANCOMYCIN 1 GM 250 ML IVPB (22:20)
[2018-03-03] MEDS: HYDROmorphONE 1 MG/ML SYG IV ×6 (02:03→18:29)
[2018-03-03] MEDS: OXYCODONE/ACETAMINOPHEN (10/325) TAB PO ×3 (02:56→16:03)
[2018-03-03] MEDS: VANCOMYCIN 1 GM 250 ML IVPB ×2 (05:51→13:59)
[2018-03-03 06:49] LABS: HEMATOCRIT 27.8 % (37.0-47.0); MEAN CORPUSCULAR HEMOGLOBIN 29.5 pg (29.0-33.0); MEAN CORPUSCULAR HGB CONC 32.4 g/dl (32.0-37.0); MEAN CORPUSCULAR VOLUME 91.1 fl (82.0-101.0); MEAN PLATELET VOLUME 9.1 fl (7.4-10.4); PLATELET COUNT 277 10^3/UL (140-415); RED BLOOD COUNT 3.05 10^6/ul (4.20-5.40); RED CELL DISTRIBUTION WIDTH 13.6 % (11.5-14.5)
[2018-03-03 06:52] LABS: ANION GAP 7 (8-16); BLOOD UREA NITROGEN 9 mg/dl (7-20); CALCIUM 8.7 mg/dl (8.4-10.2); CARBON DIOXIDE 30 mmol/L (21-31); CHLORIDE 106 mmol/L (97-110); CREATININE 0.52 mg/dl (0.44-1.00); GLUCOSE 91 mg/dl (70-220); POTASSIUM 3.8 mmol/L (3.5-5.1); SODIUM 139 mmol/L (135-144)
[2018-03-03 07:00] LABS: ADD MAN DIFF? YES
[2018-03-03] MEDS: LORATADINE 10 MG TAB PO (08:52)
[2018-03-03] MEDS: CHOLECALCIFEROL 2,000 UNIT CAP PO (08:52)
[2018-03-03] MEDS: METHOCARBAMOL 750 MG TAB PO ×2 (08:54→16:03)
[2018-03-03] MEDS: NICOTINE (21 MG/24 HR) PATCH TRANSDERM (08:56)
[2018-03-03] MEDS: BUPROPION 75 MG TAB PO (08:56)
[2018-03-03] MEDS: BISACODYL (EC) 5 MG TAB PO (09:04)
[2018-03-03] MEDS ORDERED: PANTOPRAZOLE (EC) 40 MG TAB PO (12:30)
[2018-03-03] MEDS: PANTOPRAZOLE (EC) 40 MG TAB PO (12:36)
[2018-03-03] MEDS: CEFTRIAXONE 1 GM/50 ML (PMX) 50 ML IVPB (18:33)
[2018-03-03] MEDS: traZODone 100 MG TAB PO (21:00)
[2018-03-04 15:57] LABS: PROCALCITONIN <0.10 ng/mL (<0.10)
== END 2018-03-03 21:10 | disposition home health service (06) | DRG 863 ==
LOC: E/R 00:51 → PP2 05:04
PROC: 02HV33Z Insertion of Infusion Device into Superior Vena Cava, Percutaneous Approach (ICD-10-PCS; principal; 2018-03-01)
DX: T81.4XXA Infection following a procedure, initial encounter (principal); E46 Unspecified protein-calorie malnutrition; Z68.1 Body mass index [BMI] 19.9 or less, adult; L03.221 Cellulitis of neck; Y83.9 Surgical procedure, unspecified as the cause of abnormal reaction of the patient, or of later complication, without mention of misadventure at the time of the procedure; F32.9 Major depressive disorder, single episode, unspecified; Z98.1 Arthrodesis status; F41.9 Anxiety disorder, unspecified; F17.200 Nicotine dependence, unspecified, uncomplicated
CPT/HCPCS: 36415; 36569; 71045; 72125; 76937; 80048; 80053; 80202; 80307; 81001; 83605; 84134; 84145; 85025; 85651; 86703; 86706; 86803; 87040; 87070; 87081; 87340; 96374; 96375; 99285-25; G0378